=== PATIENT | female | born 1965 | race Caucasian/White ===

== ENCOUNTER 2020-01-20 14:13 | Emergency (ER) | payer OTHER ==
[~2020-01-20] VITALS: Ht 167.6 cm; Wt 48.1 kg
[2020-01-20] MEDS ORDERED: IV NS 0.9% 1,000 ML BAG IV ONE (14:30)
--- NOTE | 2020-01-20 14:31 | NUR ---
Trino burris in [facility] - 01/20/[address] RUBY AT [facility] FOR [facility].
--- NOTE | 2020-01-20 14:31 | NUR ---
DR RUBY AT BEDSIDE FOR EVAL.
--- NOTE | 2020-01-20 14:40 | NUR ---
IV LINE STARTED, BLOOD DRAWN AND SENT TO LAB.
[2020-01-20 14:50] LABS: BASOPHILS % (AUTO) 0.7 % (0.0-2.0); EOSINOPHILS % (AUTO) 0.5 % (0.0-6.0); HEMATOCRIT 39 % (33-45); HEMOGLOBIN 13.2 g/dL (11.5-14.8); LYMPHOCYTES # (AUTO) 1.6 /CMM (0.8-4.8); LYMPHOCYTES % (AUTO) 32.5 % (20.0-44.0); MEAN CORPUSCULAR HGB CONC 34 g/dl (31.0-36.0); MEAN CORPUSCULAR VOLUME 95 fL (82-100); MONOCYTES # (AUTO) 0.5 /CMM (0.1-1.30); MONOCYTES % (AUTO) 10.1 % (2.0-12.0); NEUTROPHILS # (AUTO) 2.8 /CMM (1.8-8.9); NEUTROPHILS % (AUTO) 56.2 % (43.0-81.0); PLATELET COUNT (AUTO) 224 /CMM (150-450); RED BLOOD CELL COUNT(AUTO) 4.08 MIL/uL (4.0-5.2)
[2020-01-20 14:57] LABS: CALCIUM, SERUM 9.2 mg/dL (8.5-10.1); CREATININE 0.7 mg/dL (0.6-1.3); POTASSIUM 4.2 mmol/L (3.5-5.1)
[2020-01-20 15:02] LABS: ALBUMIN 3.9 g/dL (3.4-5.0); BILIRUBIN,DIRECT 0.1 mg/dL (0.0-0.2); BILIRUBIN,TOTAL 0.3 mg/dL (0.2-1.0); TOTAL PROTEIN, SERUM 7.4 g/dL (6.4-8.2)
[2020-01-20 15:52] LABS: THYROID STIMULATING HORMONE 1.569 uIU/mL (0.358-3.74)
--- NOTE | 2020-01-20 16:47 | NUR ---
SEEN AND EVALUATED BY LUIS M RUBY. PT DISCHARGE IN STABLE CONDITION.
[2020-01-20 16:49] VITALS: BP 136/80
== END 2020-01-20 16:49 | disposition home or self-care (01) ==
LOC: ER 14:18
DX: R53.83 Other fatigue (principal); R42 Dizziness and giddiness; Z88.2 Allergy status to sulfonamides
CPT/HCPCS: 36415; 71045; 80048; 80076; 84439; 84443; 85025; 93005; 96360; 99285; J7030